=== PATIENT | female | born 1970 | race Two or more races ===

== ENCOUNTER 2019-09-29 10:34 | Outpatient (CLI) | payer OTHER | END 2019-09-29 11:32 | disposition home or self-care (01) | LOC: RAD 10:34 | PROVIDERS: ATTEND Orthopaedic Surgery | DX: M25.571 Pain in right ankle and joints of right foot (principal); M25.271 Flail joint, right ankle and foot ==

== ENCOUNTER → 2019-10-10 | Outpatient (CLI) | payer OTHER ==
[~2019-10-10] MED LIST: CLONAZEPAM1 MG PO; MULTIPLE VITAM1 EACH PO; OMEGA PO; SYNTHROID137 MCG PO; WELLBUTRIN SR150 MG PO; WELLBUTRIN XL300 MG PO; [UNRECOGNIZED DRUG - OTHER] PO; [UNRECOGNIZED DRUG - OTHER] PO; [UNRECOGNIZED DRUG - OTHER] PO
== END | disposition home or self-care (01) ==
LOC: NUCLEAR 13:30
PROVIDERS: ATTEND Orthopaedic Surgery
DX: M81.0 Age-related osteoporosis without current pathological fracture (principal)

== ENCOUNTER 2019-10-30 05:45 | Day surgery (SDC) | payer OTHER | END 2019-10-30 17:37 | disposition home or self-care (01) | LOC: CIR.AMB 05:45 | PROVIDERS: ATTEND Orthopaedic Surgery | DX: M76.821 Posterior tibial tendinitis, right leg (principal); M21.41 Flat foot [pes planus] (acquired), right foot; Z20.828 Contact with and (suspected) exposure to other viral communicable diseases | CPT/HCPCS: 20902; 27626; 27685; 27695; 28238; 28300; C1776 ==

== ENCOUNTER 2020-08-01 08:52 | Outpatient (CLI) | payer OTHER | END 2020-08-01 08:59 | disposition home or self-care (01) | LOC: RAD 08:52 | PROVIDERS: ATTEND Orthopaedic Surgery | DX: M25.571 Pain in right ankle and joints of right foot (principal); M25.561 Pain in right knee ==